=== PATIENT | male | born 1945 | race Caucasian/White ===

== ENCOUNTER 2018-10-05 17:02 | Emergency (ER) | payer MEDICARE, OTHER ==
[~2018-10-05] VITALS: Ht 167.6 cm; Wt 82.4 kg
[2018-10-05 17:24] VITALS: Ht 167.6 cm; Wt 82.4 kg
[2018-10-05 20:57] VITALS: BP 127/94; PULSE 77; RESP 18
--- NOTE | 2018-10-05 23:18 | ERD ---
ER Documentation Chief Complaint Chief Complaint Sent from MD for evaluation bilateral leg pain r/o DVT HPI Patient is a 72-year-old male with hypertension and diabetes who presents for possible DVT. The patient had an ultrasound done as an outpatient and results were sent back to the doctor who said that he might have a DVT. He does not have the report with him and the daughter does not know what the report said. There was bilateral leg swelling over the past few days. The patient has had no chest pain. Upon review of old medical records this is the patient's first visit to the emergency department. There is been no treatment as of yet. ROS All systems reviewed and are negative except as per history of present illness. Allergies Allergies: Coded Allergies: No Known Allergy (Unverified , 10/05/18) PMhx/Soc History of Surgery: Yes (PROSTATE) Anesthesia Reaction: No Hx Miscellaneous Medical Probl: Yes (DM) Hx Alcohol Use: No Hx Substance Use: No Hx Tobacco Use: No Smoking Status: Never smoker FmHx Family History: diabetes Physical Exam Vitals Vital Signs Date Temp Pulse Resp B/P (MAP) Pulse Ox O2 O2 Flow FiO2 Time Delivery Rate 10/05/18 97.5 77 18 127/94 99 Room Air 20:57 (105) 10/05/18 97.5 79 20 183/89 98 Room Air 19:35 (120) 10/05/18 97.5 92 20 178/81 98 17:24 (113) Physical Exam Const: No acute distress Head: Atraumatic Eyes: Normal Conjunctiva ENT: Normal External Ears, Nose and Mouth. Neck: Full range of motion. No meningismus. Resp: Clear to auscultation bilaterally Cardio: Regular rate and rhythm, no murmurs Abd: Soft, non tender, non distended. Normal bowel sounds Skin: No petechiae or rashes Back: No midline or flank tenderness Ext: 1+ pitting edema bilateral lower extremities Neur: Awake and alert Psych: Normal Mood and Affect Result Diagram: 10/05/18193210/05/181932 Results 24 hrs Laboratory Tests Test 10/05/18 19:33 White Blood Count 9.0 10^3/ul Red Blood Count 4.24 10^6/ul Hemoglobin 12.8 g/dl Hematocrit 36.4 % Mean Corpuscular Volume 85.8 fl Mean Corpuscular Hemoglobin 30.2 pg Mean Corpuscular Hemoglobin Concent 35.2 g/dl Red Cell Distribution Width 13.4 % Platelet Count 210 10^3/UL Mean Platelet Volume 10.0 fl Immature Granulocytes % 0.400 % Neutrophils % 69.7 % Lymphocytes % 21.9 % Monocytes % 6.6 % Eosinophils % 1.1 % Basophils % 0.3 % Nucleated Red Blood Cells % 0.0 /100WBC Immature Granulocytes # 0.040 10^3/ul Neutrophils # 6.2 10^3/ul Lymphocytes # 2.0 10^3/ul Monocytes # 0.6 10^3/ul Eosinophils # 0.1 10^3/ul Basophils # 0.0 10^3/ul Nucleated Red Blood Cells # 0.0 10^3/ul Prothrombin Time 12.3 Sec Prothrombin Time Ratio 1.0 INR International Normalized Ratio 0.90 Activated Partial Thromboplast Time 28.2 Sec Sodium Level 139 mmol/L Potassium Level 4.7 mmol/L Chloride Level 100 mmol/L Carbon Dioxide Level 23 mmol/L Anion Gap 16 Blood Urea Nitrogen 17 mg/dl Creatinine 1.01 mg/dl Est Glomerular Filtrat Rate mL/min > 60 mL/min Glucose Level 184 mg/dl Calcium Level 10.3 mg/dl Procedures/MDM Bilateral lower externally ultrasound was negative for DVT. Patient is a 72-year-old male presents for leg swelling. Ultrasound was negative for DVT. Laboratory studies are normal. I believe outpatient management is appropriate. The patient will need close follow-up with a primary doctor within 24-48 hours. The patient can return for any worsening symptoms. Departure Diagnosis: Primary Impression: Edema Edema type: unspecified Qualified Codes: R60.9 - Edema, unspecified Condition: Fair Patient Instructions: Peripheral Edema, Bilateral Referrals: Your doctor Additional Instructions: Llame al doctor MAANA y sha rupert KRYSTAL PARA DENTRO DE 1-2 DOSS.Dgale a la secretaria que nosotros le instruimos hacer esta krystal.Avise o llame si dc condicin se empeora antes de la krystal. Regresa aqui si peor o no mejor. KARINA VARGAS MD Oct 05, 2018 23:18
== END 2018-10-05 20:59 | disposition home or self-care (01) ==
LOC: E/R 17:02
DX: R60.9 Edema, unspecified (principal); I10 Essential (primary) hypertension; E11.9 Type 2 diabetes mellitus without complications; M79.604 Pain in right leg
CPT/HCPCS: 36415; 80048; 85025; 85610; 85730; 93970

== ENCOUNTER 2019-05-08 05:47 | Inpatient (IN) | payer OTHER ==
[2019-05-08] VITALS (29 sets, daily range): BP systolic 111–140; BP diastolic 61–82; PULSE 70–88; RESP 13–20; Ht 170.2 cm; Wt 80.3 kg
[~2019-05-08] VITALS: Ht 170.2 cm; Wt 80.3 kg
[~2019-05-08 05:47] MED LIST: AMLO-147 PO; ENAL20TA PO; GABA300C16 PO; GLIM4TAB3 PO; IBUP800T48 PO; ICOS1CAP PO; METF100010 PO
[2019-05-08] MEDS ORDERED: CEFAZOLIN 2 GM/50 ML (PMX) 50 ML IVPB SCH (06:00)
[2019-05-08] MEDS: LACTATED RINGER'S 1,000 ML IV SCH (06:49)
[2019-05-08] MEDS ORDERED: THROMBIN 5000 UNIT (RECOTHROM) VIAL ONE (06:59)
[2019-05-08] MEDS ORDERED: GELATIN SIZE 100 SPONGE ONE (06:59)
[2019-05-08] MEDS ORDERED: POLYMYXIN/BACITRACIN 1L IRRIG ONE (07:00)
[2019-05-08] MEDS ORDERED: LIDOCAINE 0.5% (SDV) 50 ML INJ ONE (07:00)
[2019-05-08] MEDS ORDERED: PROPOFOL 20 ML ONE (07:29)
[2019-05-08] MEDS ORDERED: MEPERIDINE 25 MG INJ IV PRN (07:30)
[2019-05-08] MEDS ORDERED: EPHEDrine 25 MG/5 ML SYG ONE (07:30)
[2019-05-08] MEDS ORDERED: HYDROmorphONE 1 MG/5 ML IV SYRINGE IV PRN ×3 (07:30)
[2019-05-08] MEDS ORDERED: ALBUTEROL 0.083% (NEB) 2.5 MG/3 ML AMP HHN PRN (07:30)
[2019-05-08] MEDS ORDERED: ONDANSETRON 4 MG INJ IV PRN ×2 (07:30→11:30)
[2019-05-08] MEDS ORDERED: DESFLURANE 15 MIN ONE (07:30)
[2019-05-08] MEDS ORDERED: FENTAnyl 50 MCG/ML VIAL IV PRN ×3 (07:30)
[2019-05-08] MEDS ORDERED: hydrALAzine 20 MG INJ IV PRN (07:30)
[2019-05-08] MEDS ORDERED: LABETALOL HCL 20MG INJ IV PRN (07:30)
[2019-05-08] MEDS ORDERED: OXYCODONE/ACETAMINOPHEN (5/325) TAB PO PRN ×2 (07:30)
[2019-05-08] MEDS ORDERED: DIPHENHYDRAMINE 50 MG INJ IV PRN (07:30)
[2019-05-08] MEDS ORDERED: NEOSTIGMINE 3 MG/3 ML SYRINGE ONE (07:30)
[2019-05-08] MEDS ORDERED: IPRATROPIUM (NEB) 0.5 MG/2.5 ML AMP HHN PRN (07:30)
[2019-05-08] MEDS ORDERED: GLYCOPYRROLATE 0.4 MG INJ ONE (07:30)
[2019-05-08] MEDS ORDERED: EPHEDrine 25 MG/5 ML SYG IV PRN (07:30)
[2019-05-08] MEDS ORDERED: FENTAnyl 50 MCG/ML VIAL ONE ×2 (07:32→11:29)
[2019-05-08] MEDS ORDERED: MIDAZOLAM 1 MG/ML 2 ML INJ ONE (07:32)
[2019-05-08] MEDS ORDERED: BUPIVACAINE 0.5%/EPI (SDV) 30 ML INJ INJ ONE ×2 (09:14→11:25)
[2019-05-08] MEDS ORDERED: HEMOSTATIC MATRIX SYG ZFS ONE ×2 (09:15→11:25)
[2019-05-08] MEDS ORDERED: ROCURONIUM 50 MG INJ ONE (10:02)
[2019-05-08] MEDS ORDERED: ONDANSETRON 4 MG INJ ONE (10:02)
[2019-05-08] MEDS ORDERED: METHYLPREDNISOLONE ACET 80 MG/ML 1 ML ONE (11:04)
[2019-05-08] MEDS ORDERED: CEFAZOLIN 1 GM INJ ONE (11:16)
[2019-05-08] MEDS ORDERED: METHYLPREDNISOLONE ACET 80 MG/ML 1 ML INJ ONE (11:25)
[2019-05-08] MEDS ORDERED: traMADol 50 MG TAB PO PRN (11:30)
[2019-05-08] MEDS ORDERED: NALOXONE (0.4 MG/ML) INJ IV PRN (11:30)
[2019-05-08] MEDS ORDERED: CYCLOBENZAPRINE 10 MG TAB PO PRN (11:30)
[2019-05-08] MEDS ORDERED: BISACODYL 10 MG SUPP PR PRN (11:30)
[2019-05-08] MEDS: IBUPROFEN 800 MG TAB PO SCH ×2 (13:00→20:22)
[2019-05-08] MEDS ORDERED: CEFAZOLIN 1 GM/50 ML (PMX) 50 ML IVPB SCH (14:00)
[2019-05-08] MEDS: D5W-0.45 NACL + KCL 20 MEQ 1,000 ML IV SCH ×2 (19:27→21:18)
[2019-05-08] MEDS: DOCUSATE SODIUM 100 MG CAP PO SCH (20:21)
[2019-05-08] MEDS: FAMOTIDINE 20 MG INJ IV SCH (20:21)
[2019-05-08] MEDS: CEFAZOLIN 1 GM/50 ML (PMX) 50 ML IVPB SCH (20:21)
[2019-05-08] MEDS ORDERED: GLUCOSE GEL 15 GRAM TUBE PO PRN ×2 (20:30)
[2019-05-08] MEDS ORDERED: GLUCAGON 1 MG INJ IM PRN (20:30)
[2019-05-08] MEDS ORDERED: DEXTROSE 50% 50 ML SYRINGE IV PRN ×2 (20:30)
[2019-05-08] MEDS ORDERED: GLUCOSE GEL 15 GRAM TUBE BUCCAL PRN (20:30)
[2019-05-08] MEDS: INSULIN ASPART [NOVOLOG] 3 ML PEN SC SCH (20:53)
[2019-05-09 00:43] VITALS: BP 129/68; PULSE 87; RESP 17
[2019-05-09 02:33] VITALS: BP 129/68; PULSE 93; RESP 19
[2019-05-09] MEDS: CEFAZOLIN 1 GM/50 ML (PMX) 50 ML IVPB SCH ×2 (04:56→11:31)
[2019-05-09] MEDS: LACTATED RINGER'S 1,000 ML IV SCH (05:12)
[2019-05-09] MEDS: D5W-0.45 NACL + KCL 20 MEQ 1,000 ML IV SCH (05:13)
[2019-05-09] MEDS: INSULIN ASPART [NOVOLOG] 3 ML PEN SC SCH ×2 (07:44→11:39)
[2019-05-09 08:00] VITALS: BP 144/73; PULSE 79; RESP 18
[2019-05-09] MEDS: DOCUSATE SODIUM 100 MG CAP PO SCH (09:20)
[2019-05-09] MEDS: IBUPROFEN 800 MG TAB PO SCH ×2 (09:21→13:06)
[2019-05-09] MEDS: FAMOTIDINE 20 MG INJ IV SCH (09:21)
== END 2019-05-09 13:34 | disposition home or self-care (01) | DRG 520 ==
LOC: REC 05:47 → MS1 13:12
PROVIDERS: ADMIT Neurological Surgery; ATTEND Neurological Surgery
PROC: 01NB0ZZ Release Lumbar Nerve, Open Approach (ICD-10-PCS; 2019-05-08)
PROC: 0QB00ZZ Excision of Lumbar Vertebra, Open Approach (ICD-10-PCS; 2019-05-08)
PROC: 0SB20ZZ Excision of Lumbar Vertebral Disc, Open Approach (ICD-10-PCS; principal; 2019-05-08 07:30)
DX: M48.061 Spinal stenosis, lumbar region without neurogenic claudication (principal); M51.26 Other intervertebral disc displacement, lumbar region
CPT/HCPCS: 72100; 82962; 86850; 86900; 86901; 88304; 97116; 97162; 97530; J0690; J1040; J1170; J1815; J2175; J2250; J2405; J2710; J3010; J3480; J7120